=== PATIENT | male | born 1945 | race Caucasian/White ===

== ENCOUNTER 2020-12-06 15:05 | Observation (INO) | payer SELFPAY ==
[~2020-12-06] VITALS: Ht 172.7 cm; Wt 70.1 kg
--- NOTE | 2020-12-06 22:03 | EKG ---
[facility] [address] [facility] [place] [address] Signed Sinus rhythm with premature atrial complexes Otherwise normal ECG No previous ECGs available Confirmed by STEPHEN HOROWITZ MD ([id number]) on 12/06/2020 10:02:52 PM Electronically Signed By: STEPHEN HOROWITZ MD 12/06/202202 PATIENT NAME: KEYON HANKS Electrocardiogram DATE OF : 47 PHYSICIAN: STEPHEN HOROWITZ MD REPORT #: [id number] REPORT IS CONFIDENTIAL AND NOT TO BE RELEASED WITHOUT AUTHORIZATION
--- NOTE | 2020-12-06 22:30 | NUR ---
PT ARRIVED TO ROOM 109 FROM ED. ABLE TO SLIDE SELF OVER TO BED FROM STRETCHER. WARM BLANKET PROVIDED. ABLE TO ANSWER QUESTIONS. RA. WEARING A DEPENDS, STATED HE HAS TO "GET TO BATHROOM QUICK SOMETIMES" EDUCATED WITH CALL LIGHT. DENIED NEEDS
--- NOTE | 2020-12-06 23:00 | NUR ---
SANDWICH BOX GIVEN TO PT HE HAS NOT HAD DINNER. ASKED PT IF HE HAD ANY WEAPONS, DRUGS, ALCOHOL IN HIS BELONGINGS. HE DENIED ALL BUT SAID HE HAD BEER IN HIS BAG. WILL CHECK BAGS WHEN ABLE TO.
--- NOTE | 2020-12-06 23:22 | NUR ---
ASSESSMENT, VS AND I&O. GCS 15, A&O X4. LUNGS CLEAR, HEART TONES REGULAR. ABD SOFT, NONTENDER, PT STATES NORMAL, BOWEL TONES ACTIVE. CMS INTACT. PT HAS A TATTOO ON LEFT FA THAT WAS COVERED IN [place], REMOVED TO FIND SKIN UNDER [place]IDS MACERATED. EDUCATION PROVIDED AND AREA LEFT OPEN TO AIR. ABRASION ON RIGHT ELBOW. PT HAS SCATTERED BRUISING ALL OVER. IV WNL, CDI, FLUSHED WELL. IV FLUIDS INFUSING. PT DENIES PAIN. NO OTHER NEEDS AT THIS TIME. CALL LIGHT IN REACH.
--- NOTE | 2020-12-07 | NUR ---
PT RESTING IN BED, EYES CLOSED. RR EVEN, UNLABORED. IV FLUIDS INFUSING PER ORDER. CALL LIGHT IN REACH.
--- NOTE | 2020-12-07 01:53 | NUR ---
VS AND I&O COMPLETED. ICE WATER PROVIDED. IV FLUIDS INFUSING PER ORDER. NO OTHER NEEDS. CALL LIGHT IN REACH.
--- NOTE | 2020-12-07 02:10 | NUR ---
PT UP TO BR AND BACK TO BED, SBA. ASSESSMENT COMPLETED. GCS 15, A&O X4. PT DENIES ALCOHOL AND DRUG USE WHEN ASKED ABOUT HISTORY. ABD SOFT, NONTENDER, BOWEL TONES ACTIVE, PT STATES NORMAL. CMS INTACT. SKIN UNCHANGED. IV WNL, IV FLUIDS AND NAUSEA. NO OTHER NEEDS AT THIS TIME. CALL LIGHT IN REACH.
--- NOTE | 2020-12-07 04:00 | NUR ---
PT RESTING IN BED, EYES CLOSED. RR EVEN, UNLABORED. CALL LIGHT IN REACH.
--- NOTE | 2020-12-07 05:16 | NUR ---
PT UP TO VOID, SBA/INDP TO TOILET, VITALS DONE, BREAKFAST ORDER TAKEN AT THIS TIME, NO FURTHER NEEDS
--- NOTE | 2020-12-07 07:19 | NUR ---
Report from Eliza Maldonado RN. Patient resting in bed with eyes closed. Respirations even and unlabored. Call light in reach, bed rails up X2.
[2020-12-07] MEDS ORDERED: FORTAMET500 MG (07:33)
--- NOTE | 2020-12-07 09:12 | NUR ---
SITTING UP IN BED. FINISHED EATING BREAKFAST. VERBALIZES IT TOOK HIM SOME TIME TO ORIENT HIS SELF THIS AM UPON WAKING. NOW ORIENTED. STATES HE HAS HAD A HISTORY OF "PASSING OUT" AT LEAST ONCE PREVIOUSLY AFTER SHOWER. STATES HE HAS NOT DRANK ALCOHOL, HE HAS NO DESIRE. LAB WORK DOES SHOW ELEVATED ETOH LEVEL AT ADMISSION. DENIES PAIN AND OTHER NEEDS AT THIS TIME. CALL LIGHT IN REACH, BED RAILS UP X2.
--- NOTE | 2020-12-07 10:06 | NUR ---
SPOKE WITH PATIENT IN ROOM. PATIENT AWAKE AND ALERT, ORIENTED X3. PATIENT IS VAGUE ABOUT SOME ANSWERS. BUT STATES HE IS FROM [place]. HE RODE THE TRAIN UP TO VISIT A BROTHER IN [facility] WHO RECENTLY WAS . APPARENTLY HE THOUGH HE WOULD COME UP AND STAY THERE TO HELP HIM BUT SAYS "BUT HE DIDN'T NEED HELP AND JUST MOVED ON WITH LIFE". HE STATES HE WAS TRAVELING BACK TO [place]. HE IS VAGUE AT THIS POINT ON WHAT HAPPENED. MOSTLY HE TOOK A BUS TO [place] BUT SAYS IT WAS NOT [place]. MOST LIKELY THE [place] TRANSIT BUS. APPARENTLY WAS GOING TO [place] [address] TO [place] BECAUSE HE HAS NO ID AND NO MONEY. STATES HE HAS A BANK CARD BUT IT "STOPPED WORKING". HE DENIES HE CAN CALL FAMILY TO HELP HIM OR COME GET HIM. INCLUDING HIS BROTHER IN [facility]. I ASKED IF I CAN CALL TO SEE IF ANYONE CAN HELP AND HE DOES NOT WANT ME TOO. I ASKED WHAT HE WANTED TO DO FOR DISCHARGE AND HE WAS VAGUE AND WENT ON FOR SOME TIME ABOUT PAST ISSUES WITH A (WHO IS NOT FROM BUT HAS NOT SEEN IN MANY YEARS AND CANNOT CALL) AND OTHER FAMILY. HE ALSO WENT ON ABOUT PAYING A BILL HERE. HE SAYS HE IS A BUT THEN SAYS THEY HAD A FALLING OUT OVER A BILL IN [place]. HE GETS SSI 1500/MONTH BUT STATES HE HAS NOT MEDICARE INSURANCE. HE DENIES USING ALCOHOL. HE IS HOMELESS. IS VAGUE ABOUT THIS BUT HAS NO ADDRESS OR RESIDENCE TO GO DIRECTLY TOO, SAYS HE HAS FAMILY IN [place] AND ONCE THERE HAS PLACES HE CAN GO. I DISCUSSED I AM NOT SURE IF WE CAN HELP GET A TICKET ON A BUS BECAUSE HE HAS NO ID AND WE HAVE NO BUS TERMINAL AROUND HERE, BUT WILL LOOK INTO THAT FOR HIM. HE IS VERY EXCITED ABOUT THIS AND SAYS HE WOULD GLADLY TAKE A TICKET IF WE COULD DO THAT. EXPLAINED I CANNOT PROMISE THIS, BUT I CAN ASK SOME QUESTIONS AND GET BACK TO HIM. HE DENIES USING ANY DME CURRENTLY. DOES NOT DRIVE HE STATES BECAUSE HE HAS BAD VISION.
--- NOTE | 2020-12-07 10:30 | NUR ---
Patient sitting up in bed. Requesting personal items, items provided. Denies other needs at this time. Call light in reach, bed rails up X2.
--- NOTE | 2020-12-07 14:24 | NUR ---
In bed at this time. Denies pain and discomfort. Call light in reach. Bed rails up X2. Assessment completed. IV fluids continue infusing.
--- NOTE | 2020-12-07 16:21 | NUR ---
LYING IN BED. DENIES NEEDS AT THIS TIME. CALL LIGHT IN REACH.
--- NOTE | 2020-12-07 17:48 | NUR ---
DR. HOROWITZ NOTIFIED OF ELEVATED BLOOD PRESSURES. NO NEW ORDERS AT THIS TIME. PATIENT REMAINS ASYMPTOMATIC. WILL CONTINUE TO MONITOR.
--- NOTE | 2020-12-07 17:49 | NUR ---
PATIENT IN BED THROUGHOUT DAY. DENIES PAIN. CONTINUES ON IV FLUIDS. LABS SLOWLY IMPROVING. EATING ADEQUATE AMOUNT AT MEALS.
--- NOTE | 2020-12-07 19:10 | NUR ---
I WENT INTO PATIENT ROOM ASKED HIM IF HE WOULD LIKE TO TAKE A SHOWER AND HE SAID HE WAS COMFORTABLE LAYING IN HIS BED. SO I AM GOING TO ASK HIM TOMORROW.
--- NOTE | 2020-12-07 19:13 | NUR ---
DID HIS BLOOD SUGAR CHECKS FOR BREAKFAST LUNCH AND DINNER.
--- NOTE | 2020-12-07 19:38 | NUR ---
SHIFT REPORT RECEIVED FROM ROBYN BARILLAS. NO NEEDS AT THIS TIME.
--- NOTE | 2020-12-07 23:00 | NUR ---
IV PUMP ALARMING, RESOLVED. NO NEEDS AT THIS TIME.
--- NOTE | 2020-12-08 01:25 | NUR ---
IV PUMP ALARMING, RESOLVED. PT UP TO BR AND BACK TO BED. NO OTHER NEEDS. CALL LIGHT IN REACH.
--- NOTE | 2020-12-08 03:53 | NUR ---
PT RESTING IN BED, EYES CLOSED. RR EVEN, UNLABORED. CALL LIGHT IN REACH.
--- NOTE | 2020-12-08 06:15 | NUR ---
VS AND I&O COMPLETED. PT HAS ELEVATED BP, PRN HTN MED PROVIDED. NO OTHER NEEDS. CALL LIGHT IN REACH.
--- NOTE | 2020-12-08 07:11 | NUR ---
TOOK REPORT FROM SANAM BARILLAS. PT IN ROOM IN BED. DENIES NEEDS AT THIS TIME.
[2020-12-08] MEDS ORDERED: AMLODIPINE BESYL5 MG PO (08:18)
--- NOTE | 2020-12-08 08:29 | NUR ---
MED REC COMPLETE
--- NOTE | 2020-12-08 09:51 | NUR ---
SPOKE WITH PATIENT IN ROOM. DISCUSSED WITH HIM THAT HE CANNOT BOARD THE BUS IN [place] DUE TO NO ID. ASKED IF WE CAN GET HIM BACK TO HIS BROTHERS WHERE HE COULD STAY TO SEE ABOUT GETTING ANOTHER ID CARD AND THEN HE WOULD BE ABLE TO TRAVEL EASIER. PATIENT DECLINES THIS. STATES "OH NO, I JUST NEED TO GET TO [address]". AGAIN I EXPLAINED [address] [place]. DISCUSSED THAT HE WAS DEHYDRATED AND TRAVELING LIKE THAT PUTS HIM AT RISK FOR THAT OCCURRING AGAIN. ALSO STRESSED TO HIM SEVERAL TIMES THAT ALCOHOL IS VERY DEHYDRATING AND WILL MAKE DEHYDRATION MUCH WORSE AND FASTER. HE STATES "OH NO THAT WAS A ONE TIME SITUATION". I TRIED TO TALK WITH HIM AGAIN THAT WE CAN HELP GET HIM TO [facility] WHERE HIS BROTHER LIVES. THAT IT WOULD BE SAFER TO GO THERE AND THEN DECIDE HOW TO TRAVEL IF HE WANTS TO GET TO [place]. THEN HE STATES "WELL I AM HEADED TO [place]". I EXPLAINED THAT HE IS TRAVELING IN THE WRONG DIRECTION IF HE WANTS [place]. DISCUSSED THAT WE HAVE A PLACE HERE CALLED [facility] THAT HELPS PEOPLE IN CRISIS. ASKED IF HE WOULD BE WILLING TO GO THERE AND THEN HE CAN DECIDE WHAT TO DO. GAVE HIM A BROCHURE. HE THEN SAID HE MIGHT GO TO [facility] TO GET HIS CELL PHONE ACTIVATED. APPARENTLY THAT WAS WHAT HE WAS GOING TO DO YESTERDAY. I ASKED IF HE WANTED A RIDE TO [facility] OR [facility]. HE DECIDED MAYBE HE WOULD GO TO [facility] FIRST. DISCUSSED WE WILL GIVE HIM A TAXI RIDE TO THEM. UPDATED STAFF. PRINTED OUT A MAP OF THE AREA. PATIENT IS UP IN ROOM ON OWN. FULLY AMBULATORY WITHOUT DME. WAS ABLE TO DRESS ON OWN. ASKED ONE MORE TIME IF WE CAN HELP HIM GET BACK TO [place] TO HIS BROTHERS AND HE DECLINES. STATES "I AM USED TO GETTING WHERE I AM GOING, I TRAVEL A LOT LATELY".
== END 2020-12-08 10:25 | disposition home or self-care (01) ==
LOC: ED 15:05 → MS 15:07
PROVIDERS: ADMIT Internal Medicine; ATTEND Internal Medicine
DX: N17.9 Acute kidney failure, unspecified (principal); E86.0 Dehydration; I10 Essential (primary) hypertension; E11.9 Type 2 diabetes mellitus without complications; T67.5XXA Heat exhaustion, unspecified, initial encounter; X30.XXXA Exposure to excessive natural heat, initial encounter; Z59.0 Homelessness; Z87.891 Personal history of nicotine dependence; Z79.84 Long term (current) use of oral hypoglycemic drugs; Z20.822 Contact with and (suspected) exposure to COVID-19
CPT/HCPCS: 36415; 80048; 80053; 81001; 82550; 83690; 83735; 84484; 85025; 93005; 93010; 99284-25; C9803; G0378; J1815; J7030; J7121; U0003